=== PATIENT | male | born 1960 | race Hispanic/Latino ===

== ENCOUNTER 2018-11-04 02:41 | Emergency (ER) | payer BC, MEDICAID | END 2018-11-04 03:24 | disposition home or self-care (01) | LOC: EDH 02:41 | DX: R04.0 Epistaxis (principal) ==

== ENCOUNTER 2020-11-12 10:27 | Emergency (ER) | payer MEDICAID ==
[~2020-11-12] VITALS: Ht 172.7 cm; Wt 65.3 kg
[2020-11-12 10:29] VITALS: BP 111/68
[2020-11-12 13:48] VITALS: BP 114/71
== END 2020-11-12 13:50 | disposition home or self-care (01) ==
LOC: EDH 10:27
DX: S60.222A Contusion of left hand, initial encounter (principal); R22.32 Localized swelling, mass and lump, left upper limb; I10 Essential (primary) hypertension; W18.39XA Other fall on same level, initial encounter; Z91.81 History of falling; Y93.89 Activity, other specified; Y92.89 Other specified places as the place of occurrence of the external cause; Y99.9 Unspecified external cause status
CPT/HCPCS: 73100; 93971

== ENCOUNTER → 2021-08-09 | Outpatient (CLI) | payer MEDICAID | END | disposition home or self-care (01) | LOC: RAH 07:42 | PROVIDERS: ATTEND Internal Medicine Gastroenterology | DX: K80.20 Calculus of gallbladder without cholecystitis without obstruction (principal); J90 Pleural effusion, not elsewhere classified; R94.5 Abnormal results of liver function studies | CPT/HCPCS: 76700; 93975 ==

== ENCOUNTER → 2024-06-08 | Outpatient (CLI) | payer MEDICAID ==
[2024-06-08 12:35] LABS: ALBUMIN 1.9 g/dL (3.5-5.0); BILIRUBIN,TOTAL 3.3 mg/dL (0.2-1.0); CREATININE 1.5 mg/dL (0.5-1.3); POTASSIUM 4.8 mmol/L (3.5-5.1); TOTAL PROTEIN, SERUM 7.9 g/dL (6.0-8.3)
== END | disposition home or self-care (01) ==
LOC: LAB 09:26
PROVIDERS: ATTEND Internal Medicine Cardiovascular Disease
DX: R60.0 Localized edema (principal); R94.31 Abnormal electrocardiogram [ECG] [EKG]
CPT/HCPCS: 36415; 80053; 80061; 83880